=== PATIENT | male | born 1970 | race American Indian/Alaskan Native ===

== ENCOUNTER 2016-08-31 08:07 | Emergency (ER) | payer OTHER ==
[2016-08-31 09:06] LABS: Bacteria,Urine 1+ /HPF (Negative); Bilirubin,Urine NEG (Negative); Blood,Urine NEG (Negative); Ketones,Urine NEG (Negative); Leukocyte Esterase,Urine LG (Negative); Mucus,Urine FEW /HPF; Nitrite,Urine NEG (Negative); Protein,Urine <15 mg/dL mg/dL (Negative); Urobilinogen,Urine < 2.0 mg/dL (<2.0)
[2016-08-31] MEDS ORDERED: XYLOCAINE 1% MPF 5 mL INFILTRATI ONE (09:34)
[2016-08-31] MEDS ORDERED: ZITHROMAX PO ONE (09:34)
[2016-08-31] MEDS ORDERED: ROCEPHIN IM ONE (09:34)
[2016-08-31] MEDS ORDERED: CATAPRES PO ONE (09:35)
--- NOTE | 2016-08-31 09:42 | Emergency Department Report ---
HPI - General Chief Complaint: Urogenital-Male Time Seen by Provider: 08/31/16 09:19 - HPI HPI: This is a 46-year-old Afro-[place] male presents to the emergency department with complaint of a whitish discharge coming from the penis with a past 3 days. The patient essentially active and says that he is only with a long-term partner, however then he admits to a sexual rendezvous with an ex-girlfriend 5 days ago. He denies any abdominal pain, burning with urination. He has no history of STDs. He denies any lesions to the genitals or skin. He has not taken anything for symptoms prior to presentation. Patient presents with some elevated blood pressure but does not have any history of HTN or any pmhx. However, he does not follow with a PCP. No recent travel or sick contacts at home. He contacted his sexual partners and they have no recent history of any lesions or discharge as well. ED Past Medical Hx - Past Medical History Previous Medical History?: Yes Hx Hypertension: Yes (no meds) - Surgical History Past Surgical History?: Yes Additional Surgical History: right ankle surgery - Social History Smoking Status: Current Every Day Smoker Substance Use Type: Alcohol, Marijuana - Medications Home Medications: Home Medications Medication Instructions Recorded Confirmed Last Taken Type Nitrofurantoin [place]/M-Cryst 100 mg PO Q12HR #14 capsule 08/31/16 Unknown Rx [Macrobid CAP] amLODIPine [Norvasc] 5 mg PO DAILY #30 tab 08/31/16 Unknown Rx ED Review of Systems ROS: Stated complaint: POSS UTI Other details as noted in HPI Comment: All other systems reviewed and negative Constitutional: denies: chills, fever Eyes: denies: eye pain, eye discharge, vision change ENT: denies: ear pain, throat pain Respiratory: denies: cough, shortness of breath, wheezing Cardiovascular: denies: chest pain, palpitations Gastrointestinal: denies: abdominal pain, nausea, diarrhea Genitourinary: discharge. denies: dysuria Musculoskeletal: denies: back pain, joint swelling, arthralgia Skin: denies: rash, lesions Neurological: denies: headache, weakness, paresthesias Physical Exam - Physical Exam Vital Signs: Vital Signs 08/31/16 08:15 Temperature 98.2 F Pulse Rate 70 Respiratory 18 Rate Blood Pressure 183/130 O2 Sat by Pulse 100 Oximetry Physical Exam: GENERAL: The patient is well-developed well-nourished. HEENT: Normocephalic. Atraumatic. Extraocular motions are intact. Patient has moist mucous membranes. Pupils equal reactive to light bilaterally. NECK: Supple. Trachea is midline. CHEST/LUNGS: Clear to auscultation. There is no respiratory distress noted. HEART/CARDIOVASCULAR: Regular. There is no tachycardia. There is no gallop rub or murmur. ABDOMEN: Abdomen is soft, nontender. Patient has normal bowel sounds. There is no abdominal distention. SKIN: There is no rash. There is no edema. There is no diaphoresis. NEURO: The patient is awake, alert, and oriented. The patient is cooperative. The patient has no focal neurologic deficits. The patient has normal speech. MUSCULOSKELETAL: There is no tenderness or deformity. There is no limitation range of motion. There is no evidence of acute injury. : Normal-appearing penis and scrotum. There are no lesions seen. There is a milky white discharge seen coming from the urethra. ED Course Vital Signs 08/31/16 08:15 Temperature 98.2 F Pulse Rate 70 Respiratory 18 Rate Blood Pressure 183/130 O2 Sat by Pulse 100 Oximetry ED Medical Decision Making - EKG Data -: EKG Interpreted by Sc EKG shows normal: sinus rhythm, axis (RAD), intervals, QRS complexes (LVH), ST- T waves Rate: normal - EKG Data When compared to previous EKG there are: previous EKG unavailable Interpretation: LVH - Medical Decision Making This is a 46-year-old male presents the emergency department with complaint of penile discharge. With concern for possible STD, patient was treated with Rocephin and azithromycin, to treat gonorrhea and chlamydia. He is going to contact his sexual partners let them know of his treatment so they can receive the same. Patient's urinalysis also shows 65 white blood cells in the urine concerning for urinary tract infection. He will go on a course of antibiotics. Patient presented with elevated blood pressure and does not have a diagnosis of hypertension prior to today but also does not follow with a primary care doctor. He was given a dose of Catapres and it came down to more reasonable level but still elevated. We discussed dietary changes and exercise. He will be started on Norvasc on a medium dose and will keep a blood pressure log. He' ll be given primary care referrals. He will return to the ER with any worsening of symptoms or any acute distress. - Differential Diagnosis gonorrhea, chlamydia, hypertensive urgency, UTI Critical Care Time: No Critical care attestation.: If time is entered above; I have spent that time in minutes in the direct care of this critically ill patient, excluding procedure time. ED Disposition Clinical Impression: Penile discharge UTI (urinary tract infection) Qualifiers: Urinary tract infection type: acute cystitis Hematuria presence: without hematuria Qualified Code(s): N30.00 - Acute cystitis without hematuria Hypertension Qualifiers: Hypertension type: essential hypertension Qualified Code(s): I10 - Essential ( primary) hypertension Disposition: DISCHARGED TO HOME OR SELFCARE Is pt being admited?: No Condition: Stable Instructions: Hypertension (ED), Nonspecific Urethritis in Men (ED), Urinary Tract Infection in Men (ED) Additional Instructions: Please follow-up with a primary care doctor as soon as possible. Try to stay away from foods that are high in salt and caffeinated products to assist with her blood pressure. Keep a blood pressure log. I have started you on a blood pressure medication called Norvasc, to be taken every morning, once daily. Take the antibiotics as prescribed for your urinary tract infection. You are encouraged to stay away from any sexual contact for at least 1 week while the antibiotics you've been given started to take effect. Once you do engage in any sexual contact, and is encouraged to use protection. Return to the emergency department with any worsening of your symptoms or any acute distress. Prescriptions: amLODIPine [Norvasc] 5 mg PO DAILY #30 tab Nitrofurantoin Bel[place]ami/M-Cryst [Macrobid CAP] 100 mg PO Q12HR #14 capsule Referrals: CONSUELO BOYD MD [Primary Care Provider] - 3-5 Days MEAGHAN MEYERS MD [Staff Physician] - 3-5 Days [facility] [Outside] - 3-5 Days [facility] [Outside] - 3-5 Days Time of Disposition: 11:22
[2016-08-31 11:19] VITALS: BP 146/104
== END 2016-08-31 11:36 | disposition home or self-care (01) ==
LOC: ED 08:07
DX: N30.00 Acute cystitis without hematuria (principal); I10 Essential (primary) hypertension; R36.9 Urethral discharge, unspecified; F12.10 Cannabis abuse, uncomplicated; F17.200 Nicotine dependence, unspecified, uncomplicated
CPT/HCPCS: 81001; 93005; 93010; 96372; 99283; J0696

== ENCOUNTER 2016-10-17 15:37 | Emergency (ER) | payer SELFPAY ==
[2016-10-17 16:10] VITALS: BP 163/109
[2016-10-17] MEDS ORDERED: ROCEPHIN IM ONE (17:14)
[2016-10-17] MEDS ORDERED: ZITHROMAX PO ONE (17:14)
[2016-10-17] MEDS ORDERED: XYLOCAINE 1% MPF 5 mL INFILTRATI ONE (17:14)
--- NOTE | 2016-10-25 11:21 | Emergency Department Report ---
Entered by JOI SINCLAIR, acting as scribe for EDEN ROLAND NP. ED Male HPI - General Chief complaint: Urogenital-Male Stated complaint: POSS INFECTION IN GROIN AREA Time Seen by Provider: 10/17/16 17:06 Source: patient Mode of arrival: Ambulatory Limitations: No Limitations - History of Present Illness Initial comments: 46 year old male presents to the ED for evaluation of white penile discharge for 3-5 days. Denies fever, chills, dysuria, nausea, vomiting, and previous similar symptoms. Notes unprotected sexual intercourse within the last 2 months. Patient also reports PMHx HTN and inconsistent compliance with medication. MD Complaint: penile discharge (white) -: days(s) (3-5 days) Location: penis Radiation: none Improves with: none Worsens with: none discharge. denies: blood in urine, dysuria, fever, nausea/vomiting - Related Data Sexually active: Yes (reports unprotected sexual intercourse within last two months) Previous Rx's Medication Instructions Recorded Last Taken Type Nitrofurantoin [place]/M-Cryst 100 mg PO Q12HR #14 capsule 08/31/16 Unknown Rx [Macrobid CAP] amLODIPine [Norvasc] 5 mg PO DAILY #30 tab 08/31/16 Unknown Rx Allergies Allergy/AdvReac Type Severity Reaction Status Date / Time ibuprofen Allergy Hives Verified 08/31/16 08:14 ED Review of Systems Comment: All other systems reviewed and negative Constitutional: denies: chills, fever Gastrointestinal: denies: nausea, vomiting Genitourinary: discharge (white). denies: dysuria, hematuria ED Past Medical Hx - Past Medical History Hx Hypertension: Yes (no meds) - Surgical History Additional Surgical History: right ankle surgery - Social History Smoking Status: Current Every Day Smoker Substance Use Type: Alcohol - Medications Home Medications: Home Medications Medication Instructions Recorded Confirmed Last Taken Type Nitrofurantoin [place]/M-Cryst 100 mg PO Q12HR #14 capsule 08/31/16 Unknown Rx [Macrobid CAP] amLODIPine [Norvasc] 5 mg PO DAILY #30 tab 08/31/16 Unknown Rx ED Physical Exam - General Limitations: No Limitations General appearance: alert, in no apparent distress - Head Head exam: Present: atraumatic, normocephalic - Eye Eye exam: Present: normal appearance, EOMI. Absent: conjunctival injection - ENT ENT exam: Present: normal exam, normal external ear exam - Neck Neck exam: Present: normal inspection, full ROM - Respiratory Respiratory exam: Present: normal lung sounds bilaterally. Absent: respiratory distress, wheezes, rales, rhonchi - Cardiovascular Cardiovascular Exam: Present: regular rate, normal rhythm, normal heart sounds. Absent: systolic murmur, diastolic murmur, rubs, gallop - GI/Abdominal GI/Abdominal exam: Present: soft. Absent: tenderness - Extremities Exam Extremities exam: Present: normal inspection, full ROM - Back Exam Back exam: Present: normal inspection, full ROM. Absent: tenderness, CVA tenderness (R), CVA tenderness (L), muscle spasm, paraspinal tenderness, vertebral tenderness - Neurological Exam Neurological exam: Present: alert, oriented X3, normal gait - Psychiatric Psychiatric exam: Present: normal affect, normal mood - Skin Skin exam: Present: warm, dry, intact. Absent: rash ED Course Vital Signs 10/17/16 16:06 Temperature 98.2 F Pulse Rate 66 Respiratory 18 Rate Blood Pressure 163/109 O2 Sat by Pulse 100 Oximetry - Reevaluation(s) Reevaluation #1: 10/17/16 17:22 PT aware that he will need to follow up with PCP for further STD testing. PT aware he will need to abstain from sexual activity for the next week. PT instructed on bp medication compliance. PT aware he should be taking his bp medication every day. - Pulse Oximetry Interpretation Digit-Finger Initial Pulse Oximetry Readin Actions Taken: none ED Medical Decision Making - Differential Diagnosis noncompliance with bp medication, std ED Disposition Clinical Impression: Risky sexual behavior, Penile discharge, Non compliance with medical treatment HTN (hypertension) Qualifiers: Hypertension type: essential hypertension Qualified Code(s): I10 - Essential ( primary) hypertension Disposition: DISCHARGED TO HOME OR SELFCARE Is pt being admited?: No Does the pt Need Aspirin: No Condition: Stable Instructions: Hypertension (ED), Sexually Transmitted Diseases (ED), Condom Use (ED) Additional Instructions: No sex for the next 7 days If your cultures come back positive, someone from the hospital should call you Sexual partners need testing/ treatment Take your bp medication every day. Have your bp rechecked at follow up. Referrals: CONSUELO BOYD MD [Primary Care Provider] - 3-5 Days ALEK LARSON MD [Staff Physician] - 3-5 Days [facility] [Outside] - 3-5 Days [facility] [Outside] - 3-5 Days [facility] [Outside] - 3-5 Days Time of Disposition: 17:25 This documentation as recorded by the DOTTIE murillo REBEKAH,accurately reflects the service I personally performed and the decisions made by me,EDEN ROLAND , UNIT EDUCATOR.
== END 2016-10-17 17:50 | disposition home or self-care (01) ==
LOC: ED 15:37
DX: R36.9 Urethral discharge, unspecified (principal); I10 Essential (primary) hypertension; Z91.14 Patient's other noncompliance with medication regimen; F17.200 Nicotine dependence, unspecified, uncomplicated; Z88.6 Allergy status to analgesic agent
CPT/HCPCS: 96372; 99282; J0696

== ENCOUNTER 2017-01-02 10:35 | Emergency (ER) | payer SELFPAY ==
[2017-01-02] MEDS ORDERED: ZITHROMAX PO ONE (13:11)
[2017-01-02] MEDS ORDERED: ROCEPHIN IM ONE (13:11)
[2017-01-02] MEDS ORDERED: XYLOCAINE 1% MPF 5 mL INFILTRATI ONE (13:11)
[2017-01-02] MEDS ORDERED: NORVASC PO ONE (13:24)
[2017-01-02 13:36] VITALS: BP 186/118
[2017-01-02 13:46] LABS: Bilirubin,Urine NEG (Negative); Blood,Urine NEG (Negative); Ketones,Urine NEG (Negative); Leukocyte Esterase,Urine NEG (Negative); Nitrite,Urine NEG (Negative); Protein,Urine <15 mg/dL mg/dL (Negative); Urobilinogen,Urine < 2.0 mg/dL (<2.0)
[2017-01-02 14:05] LABS: RBC,Urine < 1.0 /HPF (0.0-6.0); WBC,Urine < 1.0 /HPF (0.0-6.0)
--- NOTE | 2017-01-02 15:19 | Emergency Department Report ---
Entered by JASMIN LAMAS, acting as scribe for ALTAF SERRANO NP. ED Male HPI - General Chief complaint: Urogenital-Male Stated complaint: POSS INFECTION Time Seen by Provider: 01/02/17 12:48 Source: patient Mode of arrival: Ambulatory Limitations: No Limitations - History of Present Illness Initial comments: This is a 46 y/o male patient presents to the ED for evaluation of potential exposure to a sexually transmitted disease. Pt states his female partner tested positive for trichomoniasis 3-4 days ago. She was aslo tested for gonorrhea. Denies any lesions, urinary symptoms or penile discharge.Pt is asymptomatic, but is wanting to be treated due to his partner's recent test results. Allergies to ibuprofen. Denies past medical history. Patient also stated he takes Norvasc 5mg daily for his hypertension but stated he ran out of his blood pressure medication. Patient stated he does not have time to see his PCP. Patient denies headache, blurry vision, visual changes, CP, SOB, n/v, numbness or tingling. MD Complaint: other (exposure to STD) Radiation: none Improves with: none Worsens with: none denies other symptoms. denies: discharge, swelling, mass, rash, urinary retention, blood in urine, dysuria, fever, nausea/vomiting, incontinence - Related Data Sexually active: Yes Previous Rx's Medication Instructions Recorded Last Taken Type amLODIPine [Norvasc] 5 mg PO DAILY #30 tab 10/17/16 Unknown Rx amLODIPine [Norvasc] 5 mg PO DAILY #30 tab 01/02/17 Unknown Rx metroNIDAZOLE [Flagyl] 500 mg PO Q12HR 7 Days 01/02/17 Unknown Rx Allergies Allergy/AdvReac Type Severity Reaction Status Date / Time ibuprofen Allergy Hives Verified 08/31/16 08:14 ED Review of Systems Comment: All other systems reviewed and negative Constitutional: no symptoms reported. denies: chills, fever Eyes: denies: eye pain, eye discharge, vision change ENT: denies: ear pain, throat pain Respiratory: no symptoms reported. denies: cough, shortness of breath Cardiovascular: denies: chest pain, palpitations Endocrine: no symptoms reported Gastrointestinal: denies: abdominal pain, nausea, vomiting Genitourinary: denies: urgency, dysuria, frequency, discharge, testicular pain Musculoskeletal: denies: back pain Skin: denies: rash, lesions Neurological: denies: headache Psychiatric: denies: anxiety, depression Hematological/Lymphatic: denies: easy bleeding, easy bruising ED Past Medical Hx - Past Medical History Hx Hypertension: Yes (no meds) - Surgical History Additional Surgical History: right ankle surgery - Social History Smoking Status: Current Every Day Smoker Substance Use Type: None, Alcohol - Medications Home Medications: Home Medications Medication Instructions Recorded Confirmed Last Taken Type amLODIPine [Norvasc] 5 mg PO DAILY #30 tab 10/17/16 Unknown Rx amLODIPine [Norvasc] 5 mg PO DAILY #30 tab 01/02/17 Unknown Rx metroNIDAZOLE [Flagyl] 500 mg PO Q12HR 7 Days 01/02/17 Unknown Rx ED Physical Exam - General Limitations: No Limitations General appearance: alert, in no apparent distress - Head Head exam: Present: atraumatic, normocephalic, normal inspection - Eye Eye exam: Present: normal appearance, PERRL, EOMI - ENT ENT exam: Present: normal exam, normal orophraynx, mucous membranes moist - Neck Neck exam: Present: normal inspection, full ROM - Respiratory Respiratory exam: Present: normal lung sounds bilaterally. Absent: respiratory distress, wheezes, rales, rhonchi, stridor, chest wall tenderness, accessory muscle use, decreased breath sounds, prolonged expiratory - Cardiovascular Cardiovascular Exam: Present: regular rate, normal rhythm, normal heart sounds. Absent: bradycardia, tachycardia, irregular rhythm - GI/Abdominal GI/Abdominal exam: Present: soft. Absent: distended, tenderness, guarding, rebound - Rectal Rectal exam: Present: deferred - Extremities Exam Extremities exam: Present: normal inspection, full ROM, normal capillary refill. Absent: tenderness, pedal edema, joint swelling, calf tenderness - Back Exam Back exam: Present: normal inspection, full ROM. Absent: tenderness, CVA tenderness (R), CVA tenderness (L), muscle spasm, paraspinal tenderness, vertebral tenderness, rash noted - Neurological Exam Neurological exam: Present: alert, oriented X3, CN II-XII intact, normal gait, reflexes normal - Psychiatric Psychiatric exam: Present: normal affect, normal mood - Skin Skin exam: Present: warm, dry, intact. Absent: rash ED Course Vital Signs 01/02/17 11:00 Temperature 98.7 F Pulse Rate 51 L Respiratory 20 Rate Blood Pressure 163/113 O2 Sat by Pulse 100 Oximetry - Reevaluation(s) Reevaluation #1: 01/02/17 13:26 Patient is able to speak in full sentences with no signs of distress noted. ED Medical Decision Making - Medical Decision Making Ed course: This is a 46-year-old male that presents to the further treatment of STD and Trichomonas 1- patient was examined by myself. he received Rocephin and azithromycin ED 2-patient was discharged with Flagyl for 7 days and was instructed not to consume any alcohol during treatment 3- patient was instructed to follow up with primary care doctor in 3-5 days and to return to Medical records in [facility] to obtain the results of gonorrhea/ chlamydia 4- at time time of discharge, the patient does not seem toxic or ill in appearance. No acute signs of distress noted. Patient agrees to discharge treatment plan of care. No further questions noted by the patient. ED Disposition Clinical Impression: Possible exposure to STD, Trichomonas contact Disposition: - TO HOME OR SELFCARE Is pt being admited?: No Does the pt Need Aspirin: No Condition: Stable Instructions: Safe Sex (ED), Sexually Transmitted Diseases (ED), Metronidazole (By mouth), Hypertension (ED) Additional Instructions: follow up with primary care doctor in 24 hours to evaluate your blood pressure and to return to Medical records in [facility] to obtain the results of gonorrhea/ chlamydia Do not consume any alcohol while taking Flagyl Prescriptions: amLODIPine [Norvasc] 5 mg PO DAILY #30 tab metroNIDAZOLE [Flagyl] 500 mg PO Q12HR 7 Days Referrals: PRIMARY MD DEB [Primary Care Provider] - 3-5 Days PROSPER HUITRON JR, MD [Staff Physician] - 3-5 Days [facility] [Referring] - 3-5 Days [facility] [Outside] - 3-5 Days [facility] [Outside] - 3-5 Days Forms: Work/School Release Form(ED) This documentation as recorded by the ADAMS murillo SHALANE,accurately reflects the service I personally performed and the decisions made by me,ALTAF SERRANO, MAJO.
== END 2017-01-02 14:23 | disposition home or self-care (01) ==
LOC: ED 10:35
DX: Z20.2 Contact with and (suspected) exposure to infections with a predominantly sexual mode of transmission (principal); F17.200 Nicotine dependence, unspecified, uncomplicated; I10 Essential (primary) hypertension; Z88.6 Allergy status to analgesic agent
CPT/HCPCS: 81001; 87591; 96372; 99283; J0696